=== PATIENT | female | born 1995 | race Two or more races ===

== ENCOUNTER 2019-07-23 12:03 | Emergency (ER) | payer SELFPAY ==
[~2019-07-23] VITALS: Ht 162.6 cm; Wt 62.0 kg
[2019-07-23] MEDS ORDERED: KETOROLAC 30MG/ML VIAL IM ONE (12:45)
[2019-07-23 14:59] VITALS: BP 110/85
== END 2019-07-23 15:12 | disposition home or self-care (01) ==
LOC: ER 12:03
DX: M25.562 Pain in left knee (principal)
CPT/HCPCS: 73562; 81025; 93971; 99284; J1885; L1830